=== PATIENT | male | born 1940 | race Caucasian/White ===

== ENCOUNTER 2024-06-28 19:28 | Emergency (ER) | payer MEDICARE, SELFPAY ==
--- NOTE | 2024-06-28 19:49 | PC.NURSE ---
1842 EMS toned out for witnessed collapse 1925 Code blue called overhead 1927 patient arrived to room 1; EMS states they shocked patient four times, placed an 18 g IV and gave 3 rounds of epi, with the last epi given at 1914; also intubated patient and show end title co2 of 38-40 1929 Epi given; glucose checked and was found to be 201; pulse check done and no pulse was felt; fine vfib shown on monitor 1930 shock delivered 1931 18 placed in right AC 1932 pulse check; no pulse; vfib on monitor; shock given; second epi given; one amp bicarb given 1935 pulse check; shows vfib; shock delivered; epi given 1936 100 lidocaine given 1937 pulse check; vfib shown; shock delivered 1938 epi given 1939 pulse check done; vfib shown; shock delivered 1941 epi given; cardiac ultrasound done; cardiac standstill shown on ultrasound; time of called
--- NOTE | 2024-06-28 20:00 | ED_ITS ---
Discharge Plan Prescriptions Prescriptions: No Action lisinopril 20 MG Tablet 20 mg PO DAILY multivitamin 1 EACH Capsule 1 ea PO DAILY Referrals Follow up/Referrals: Provider,Referral, MD [Primary Care Provider] - See instructions Clinical Impressions Clinical Impression: Cardiac arrest, Ventricular fibrillation Print Language Print Language: Tuvaluan Discharge ED Provider: Brandie Lindsey General Adult HPI General Stated complaint: code blue Time Seen by Provider: 06/28/24 19:30 History of Present Illness HPI narrative: This patient is an 83-year-old male with a history of hypertension presenting to the emergency department as a CODE BLUE by EMS. EMS reports they were called to the scene at 1843 for witnessed arrest. They initiated ACLS upon their arrival and patient did have V-fib for which she was shocked multiple times. They also gave epi per ACLS protocols as well as amiodarone. They had ROSC briefly, but then lost pulses again. Patient's arrived and noted patient went outside to feed their cats and collapsed. She found him lifeless on the ground after hearing a thud. Related Data Home Medications ?Medication ?Instructions ?Recorded ?Confirmed lisinopril 20 mg tablet 20 mg PO DAILY bp 11/29/17 12/28/17 multivitamin 1 ea PO DAILY Supplement 11/29/17 12/28/17 Allergies Allergy/AdvReac Type Severity Reaction Status Date / Time No Known Allergies Allergy Verified 11/29/17 09:48 [facility] Disclaimer: The information contained in this section may have been updated after the patient was seen, as this information can be updated by other users. Social History Smoking Status: Unknown if ever smoked alcohol intake: never current occupational status: retired Travel in the last 8 weeks: None caffeine: No ROS Obtained: Yes unobtainable due to mental status Physical Exam General General appearance: in distress Comment: CPR in progress upon arrival, ventilations via oral airway Head Head exam: atraumatic and normocephalic Eye Eye exam: Present other (pupils fixed and dilated) Chest Chest inspection: Present other (autopulse in place, CPR in progress) Respiratory Respiratory exam: Present other (breath sounds heard bilaterally, bag-valve a ssisted through oral airway. No spontaneous respirations) Cardiovascular Cardiovascular exam: Present other (absent pulses) Abdominal Exam Abdominal exam: Present soft; Absent distention Extremities Exam Extremities exam: Present normal inspection Neurological Exam Neurological exam: Present other (GCS 3, no residual reflexes); Absent alert Skin Skin exam: Present pallor and mottled Medical Decision Making Medical Records Medical records reviewed: Yes I reviewed the patient's medical records. Screening: Per USPSTF and CDC recommendations, given the prevalence of disease in our region, it is our hospital?s policy to screen for HIV and viral Hepatitis for all patients aged 18 and over and those with ongoing risk factors. Kelvin Inquiry Pt receiving controlled substance: No Vital Signs: 06/28/24 19:28 Oxygen Flow Rate (LPM) 15 Lab Data Lab results reviewed: Yes I reviewed the patient's lab results. Medical Decision Narrative: In summary, this patient is a 83-year-old male presenting to the Emergency Department for evaluation of cardiac arrest. Differential diagnoses considered include but are not limited to CO, ACS, dysrhythmia, electrolyte derangements, hypoglycemia, hyperkalemia. Ruling out the most morbid conditions drove assessment. It should be noted patient's history includes hypertension which is reportedly at goal therapy. This complicates all aspects of care by increasing patient's risk for morbidity. Patient arrives with CPR in progress, V-fib noted on initial pulse check. Patient was defibrillated multiple times without success. He was given a meal with EMS, he was given lidocaine by myself. He was also given 2 g of calcium as well as bicarb here. Fingerstick blood glucose was normal, he is not hypothermic. Despite multiple attempts at defibrillation, multiple rounds of ACLS with epi administered per ACLS protocol, amnio, and lidocaine in addition to fluids, bicarb, calcium, patient still had cardiac standstill noted on [id number] ultrasound. He had absent pulses, no residual reflexes, no spontaneous respirations with a downtime of about an hour. Given this, I feel he is unlikely to make a meaningful neurologic recovery. Decision was made to call time of at 1942. Critical Care Critical Care Time Critical Care Time: No
--- NOTE | 2024-06-28 20:17 | PC.NURSE ---
2007 [employer] called; no answer 2012 [facility] notified of referral 2014 patient ruled out for donation by Rajinder Madsen,
--- NOTE | 2024-06-28 21:35 | P.DN_ITS ---
Pronouncement Note Date and Time of Date of : 06/28/24 Time of : 19:42 PCOD Preliminary cause of : Ventricular fibrillation Additional Data Confirmation of : no pulse, no respirations, no heart sounds and pupils fixed and dilated Family: at bedside Attending/PCP notified?: No Was code activated?: Yes Autopsy should be considered if:: Unknown or unanticipated medical complications Cause is not known with certainty on clinical grounds Would allay concerns of the public/family regarding Unexplained/unexpected apparently natural and not subject to a forensic medical jurisdiction DOA Within 24 hours of admission Sustained or apparently sustained injury while in the hospital Result of high risk, infectious and contagious disease Obstetric and pediatric arising from environmental or occupational hazard Unexplained/unexpected from dental, medical, or surgical diagnostic procedures and/or therapies Would disclose a known or suspected illness which also may have a bearing on survivors or recipients of transplanted organs Autopsy requested?: No Does not meet criteria architectural examiner notified?: Yes Organ bank notified?: Yes Advance directives: No
[2024-06-28 22:15] VITALS: RESP 0; TEMP -17.7; TEMP 0; O2SAT 0; BMI 26.4
[2024-06-28 22:18] VITALS: BP 000/00; PULSE 0; RESP 0; TEMP -17.7; TEMP 0; O2SAT 0
== END 2024-06-28 22:51 | disposition expired ==
PROVIDERS: Emergency Provider Emergency Medicine
DX: I46.9 Cardiac arrest, cause unspecified (principal); I49.01 Ventricular fibrillation
CPT/HCPCS: 92950; 99285